=== PATIENT | male | born 1955 | race Caucasian/White ===

== ENCOUNTER 2020-12-29 20:40 | Observation (INO) | payer OTHER ==
[~2020-12-29] VITALS: Ht 177.8 cm; Wt 104.3 kg
[~2020-12-29 20:40] MED LIST: NAPR500 PO; OXYACE5T PO
[2020-12-29 21:09] LABS: BASOPHILS ABSOLUTE AUTO 0.02 K/mm3 (0.00-0.23); BASOPHILS PERCENT AUTO 0 % (0-2); EOSINOPHILS ABSOLUTE AUTO 0.11 K/mm3 (0.00-0.68); EOSINOPHILS PERCENT AUTO 2 % (0-6); Hematocrit 30.7 % (37.0-53.0); Hemoglobin 10.8 g/dL (13.5-17.5); IMMATURE GRAN ABSOLUTE AUTO 0.04 K/mm3 (0.00-0.10); IMMATURE GRAN PERCENT AUTO 1 % (0-1); LYMPHOCYTES ABSOLUTE AUTO 1.92 K/mm3 (0.84-5.20); LYMPHOCYTES PERCENT AUTO 29 % (21-46); MONOCYTES ABSOLUTE AUTO 0.58 K/mm3 (0.16-1.47); MONOCYTES PERCENT AUTO 9 % (4-13); Mean Corpuscular HGB 36.6 pg (26.0-34.0); Mean Corpuscular HGB Conc 35.2 g/dL (31.5-36.5); Mean Corpuscular Volume 104 fL (80-100); NEUTROPHILS ABSOLUTE AUTO 4.06 K/mm3 (1.96-9.15); NEUTROPHILS PERCENT AUTO 60 % (41-73); Platelet Count 110 K/mm3 (150-400); RDW Coefficient Variation 13.7 % (11.7-14.2); RDW Standard Deviation 52.2 fL (35.1-46.3); Red Blood Cell Count 2.95 M/mm3 (4.30-5.90); White Blood Cell Count 6.73 K/mm3 (4.00-11.30)
[2020-12-29 21:31] LABS: Alanine Aminotransfer (ALT/SGP 36 U/L (12-78); Albumin, Blood 2.7 g/dL (3.4-5.0); Albumin/Globulin Ratio 0.6 (0.8-1.8); Alk Phos 154 U/L (50-136); Anion Gap 13 mmol/L (6-16); Aspartate Aminotrans (AST/SGOT 69 U/L (12-37); Bilirubin, Total 2.3 mg/dL (0.1-1.0); Blood Urea Nitrogen 10 mg/dL (8-24); Bun/Creatinine Ratio 10.6 (12.0-20.0); CO2, Blood 19 mmol/L (21-32); Calcium, Blood 8.7 mg/dL (8.5-10.1); Chloride, Blood 99 mmol/L (98-108); Creatinine, Blood 0.94 mg/dL (0.60-1.20); Globulin, Blood 4.8 g/dL (2.2-4.0); Glomerular Filtration Rate >60 (60-); Glucose, Blood 120 mg/dL (70-99); Potassium, Blood 3.1 mmol/L (3.5-5.5); Sodium, Blood 131 mmol/L (136-145); Total Protein, Blood 7.5 g/dL (6.4-8.2)
[2020-12-29] MEDS ORDERED: [UNRECOGNIZED DRUG - OTHER] PO (22:30)
[2020-12-29] MEDS ORDERED: ASPI81CH PO (22:31)
[2020-12-29] MEDS ORDERED: HIGH BLOOD PRESSURE PO (22:31)
[2020-12-29 22:32] LABS: Ethanol (Alcohol), Blood, Med 82 mg/dL; Magnesium, Blood 1.6 mg/dL (1.6-2.4)
[2020-12-29] MEDS ORDERED: VITAMIN D (22:32)
[2020-12-29 23:04] LABS: International Normalized Ratio 1.28; Prothrombin Time Results 13.6 Sec (9.7-11.5)
[2020-12-30 01:17] LABS: Source, Urine Clean Catch
[2020-12-30 01:21] LABS: Appearance, Urine Clear (Clear); Bilirubin, Urine Neg (Neg); Blood, Urine Neg (Neg); Color, Urine Amber (P-Yellow); Glucose Qualitative, Urine Neg (Neg); Ketones, Urine 2+ (Neg); Leukocyte Esterase, Urine Neg (Neg); Nitrite, Urine Neg (Neg); Protein, Urine 1+ (Neg); Urobilinogen, Urine NORM (Normal)
--- NOTE | 2020-12-30 03:50 | NUR ---
PT ARRIVED TO FLOOR AT APPROX 0229 FROM ED. PT TRANSFERED FROM [facility] TO BED WITH NO PROBLEM. PT STATED THAT HIS VISION WAS DARKER THAN USUAL AND ALSO STATED THAT HE WAS UNABLE TO TO SEE COLORS DURING ASSESSMENT BUT THEN STATED THAT THIS VISION PROBLEM HAD BEEN GOING ON FOR A COUPLE OF MONTHS. PT HAD BLOOD SPLASHED ON SOCKS BUT REFUSED TO HAVE CLEAN ONES. PT DENIES CHEST PAIN OR SOB. WHILE PT WENT TO BATHROOM HE WAS ASKED NOT TO FLUSH THE TOILET. PT HAD A BOWEL MOMENT AND THIS NURSE WITNESSED BRIGHT RED AND SOME BLACK STOOL. NO WITNESSED EMISIS AT THIS TIME. PT INFUSING MEDICATIONS PER EMAR. CALL LIGHT IS WITHIN REACH. WILL CONTINUE TO MONITOR.
[2020-12-30 04:18] LABS: BASOPHILS ABSOLUTE AUTO 0.02 K/mm3 (0.00-0.23); BASOPHILS PERCENT AUTO 0 % (0-2); EOSINOPHILS PERCENT AUTO 0 % (0-6); Hematocrit 28.7 % (37.0-53.0); IMMATURE GRAN ABSOLUTE AUTO 0.07 K/mm3 (0.00-0.10); IMMATURE GRAN PERCENT AUTO 1 % (0-1); LYMPHOCYTES ABSOLUTE AUTO 1.01 K/mm3 (0.84-5.20); LYMPHOCYTES PERCENT AUTO 15 % (21-46); MONOCYTES PERCENT AUTO 7 % (4-13); Mean Corpuscular HGB 36.4 pg (26.0-34.0); Mean Corpuscular HGB Conc 34.8 g/dL (31.5-36.5); Mean Corpuscular Volume 104 fL (80-100); Mean Platelet Volume 9.8 fL (9.1-12.4); NEUTROPHILS ABSOLUTE AUTO 5.24 K/mm3 (1.96-9.15); NEUTROPHILS PERCENT AUTO 77 % (41-73); Platelet Count 103 K/mm3 (150-400); RDW Coefficient Variation 13.7 % (11.7-14.2); RDW Standard Deviation 52.7 fL (35.1-46.3); Red Blood Cell Count 2.75 M/mm3 (4.30-5.90); White Blood Cell Count 6.84 K/mm3 (4.00-11.30)
[2020-12-30 04:32] LABS: Alanine Aminotransfer (ALT/SGP 34 U/L (12-78); Albumin, Blood 2.8 g/dL (3.4-5.0); Albumin/Globulin Ratio 0.6 (0.8-1.8); Alk Phos 139 U/L (50-136); Anion Gap 9 mmol/L (6-16); Aspartate Aminotrans (AST/SGOT 64 U/L (12-37); Bilirubin, Total 2.6 mg/dL (0.1-1.0); Blood Urea Nitrogen 14 mg/dL (8-24); Bun/Creatinine Ratio 16.1 (12.0-20.0); CO2, Blood 22 mmol/L (21-32); Calcium, Blood 8.5 mg/dL (8.5-10.1); Chloride, Blood 101 mmol/L (98-108); Creatinine, Blood 0.87 mg/dL (0.60-1.20); Globulin, Blood 4.5 g/dL (2.2-4.0); Glomerular Filtration Rate >60 (60-); Glucose, Blood 121 mg/dL (70-99); Potassium, Blood 4.3 mmol/L (3.5-5.5); Sodium, Blood 132 mmol/L (136-145); Total Protein, Blood 7.3 g/dL (6.4-8.2)
--- NOTE | 2020-12-30 06:05 | NUR ---
SHIFT SUMMARY PT IS ALERT AND ORIENTED. PT IS PLEASANT BUT ANXIOUS ABOUT SITUATION. VITALS ARE STABLE AND ON ROOM AIR. DENIES CHEST PAIN AND SOB. PT STS THE HE HAS ABDOMINAL PAIN ONLY WITH P[RESSURE. BOWEL SOUND ARE HYPERACTIVE. HAS HAD TWO WITNESSED LOOSE BRB BM'S WHILE ON UNIT. STS THAT HE HAD SEVERAL EPISODES OF VOMITING WITH BRB EMISIS, THIS NURSE HAS NOT WITNESSED EMISIS/VOMITING. PT IS AMBULATING TO BATHROOM. CALL LIGHT IS WITHIN REACH.
[2020-12-30 10:00] LABS: Hematocrit 26.2 % (37.0-53.0); Hemoglobin 9.2 g/dL (13.5-17.5)
[2020-12-30 12:44] LABS: SARS-Cov-2 (COVID-19) PCR, MMC NEGATIVE (NEGATIVE)
--- NOTE | 2020-12-30 13:45 | NUR ---
UPDATE PT TO BE TRANSFERRED TO [facility] FOR GI CONSULT. [facility] TRANSFER PACKET COMPLETE. REPORT CALLED TO MARCUS KAUR AT [facility]. TRANSPORT IN THE ROOM TO TAKE PT BY [facility]. PT'S FAMILY MEMBER NOTIFIED OF TRANSFER REQUESTED. PT TAKEN OUT WITH TWO IV PUMPS.
== END 2020-12-30 13:45 | disposition short-term general hospital (02) ==
LOC: ER 20:40 → PCU 20:41 → ER 12-30 01:45 → PCU 12-30 01:45
PROVIDERS: Emergency Medicine; Family Medicine; Physician Assistant; ADMIT Internal Medicine
DX: K70.31 Alcoholic cirrhosis of liver with ascites (principal); I85.11 Secondary esophageal varices with bleeding; K76.6 Portal hypertension; F10.288 Alcohol dependence with other alcohol-induced disorder; E87.6 Hypokalemia; E03.9 Hypothyroidism, unspecified; I10 Essential (primary) hypertension; Z79.82 Long term (current) use of aspirin; Z20.822 Contact with and (suspected) exposure to COVID-19
CPT/HCPCS: 36415; 74177; 80053; 82105; 83690; 83735; 85014; 85018; 85025; 85610; 85730; 86850; 86900; 86901; 93005; 93010; 96365; 96366; 96367; 96375; 96376; 99285-25; A9270; C9113; G0378; G0480; J0696; J2354; J2405; J3411; J3475; J3480; J7042; J7050; J7120; Q9967; U0004

== ENCOUNTER 2021-01-08 15:42 | Inpatient (IN) | payer OTHER ==
[~2021-01-08] VITALS: Ht 177.8 cm; Wt 125.0 kg
[~2021-01-08 15:42] MED LIST changes: +ASPI81CH PO; +HIGH BLOOD PRESSURE PO; +VITAMIN D; +[UNRECOGNIZED DRUG - OTHER] PO
[2021-01-08 16:04] LABS: BASOPHILS ABSOLUTE AUTO 0.04 K/mm3 (0.00-0.23); BASOPHILS PERCENT AUTO 0 % (0-2); EOSINOPHILS ABSOLUTE AUTO 0.02 K/mm3 (0.00-0.68); EOSINOPHILS PERCENT AUTO 0 % (0-6); IMMATURE GRAN ABSOLUTE AUTO 0.13 K/mm3 (0.00-0.10); IMMATURE GRAN PERCENT AUTO 1 % (0-1); LYMPHOCYTES ABSOLUTE AUTO 2.53 K/mm3 (0.84-5.20); LYMPHOCYTES PERCENT AUTO 19 % (21-46); MONOCYTES ABSOLUTE AUTO 1.27 K/mm3 (0.16-1.47); MONOCYTES PERCENT AUTO 10 % (4-13); Mean Corpuscular HGB Conc 32.2 g/dL (31.5-36.5); Mean Corpuscular Volume 109 fL (80-100); Mean Platelet Volume 10.1 fL (9.1-12.4); NEUTROPHILS ABSOLUTE AUTO 9.28 K/mm3 (1.96-9.15); NEUTROPHILS PERCENT AUTO 70 % (41-73); Platelet Count 283 K/mm3 (150-400); RDW Coefficient Variation 18.2 % (11.7-14.2); RDW Standard Deviation 70.9 fL (35.1-46.3); White Blood Cell Count 13.27 K/mm3 (4.00-11.30)
[2021-01-08 16:22] LABS: Alanine Aminotransfer (ALT/SGP 27 U/L (12-78); Albumin, Blood 2.1 g/dL (3.4-5.0); Albumin/Globulin Ratio 0.7 (0.8-1.8); Alk Phos 101 U/L (50-136); Anion Gap 9 mmol/L (6-16); Aspartate Aminotrans (AST/SGOT 38 U/L (12-37); Bilirubin, Total 1.7 mg/dL (0.1-1.0); Blood Urea Nitrogen 28 mg/dL (8-24); Bun/Creatinine Ratio 25.7 (12.0-20.0); CO2, Blood 22 mmol/L (21-32); Chloride, Blood 106 mmol/L (98-108); Creatinine, Blood 1.09 mg/dL (0.60-1.20); Globulin, Blood 3.1 g/dL (2.2-4.0); Glomerular Filtration Rate >60 (60-); Glucose, Blood 142 mg/dL (70-99); Potassium, Blood 3.6 mmol/L (3.5-5.5); Sodium, Blood 137 mmol/L (136-145); Total Protein, Blood 5.2 g/dL (6.4-8.2)
[2021-01-08 16:32] LABS: Albumin, Blood 2.1 g/dL (3.4-5.0); Albumin/Globulin Ratio 0.6 (0.8-1.8); Bilirubin, Direct 0.9 mg/dL (0.0-0.3); Bilirubin, Indirect 0.9 mg/dL (0.1-0.7); Bilirubin, Total 1.8 mg/dL (0.1-1.0); Globulin, Blood 3.3 g/dL (2.2-4.0); Total Protein, Blood 5.4 g/dL (6.4-8.2)
[2021-01-08 17:17] LABS: Hematocrit 17.4 % (37.0-53.0); Hemoglobin 5.6 g/dL (13.5-17.5)
[2021-01-08 18:42] LABS: Source, Urine Catheter
--- NOTE | 2021-01-08 19:10 | NUR ---
PT ADMITTED TO ICU FROM ER ON [facility]. AWAKE, ALERT, COOPERATIVE, ABLE TO ANSWER QUESTIONS. SINUS TACH, BP STABLE. PROTONIX GTT INFUSING, 2 PIV INTACT. PLANS FOR BLOOD TRANSFUSION. ABLE TO STAND TO TRANSFER TO BED, SOME SOB WITH MOVEMENT AND DIZZINESS, RESOLVED WITH REST. REPORT TO YVONNE KAUR.
[2021-01-08 19:14] LABS: Bilirubin, Urine Neg (Neg); Blood, Urine Neg (Neg); Glucose Qualitative, Urine Neg (Neg); Ketones, Urine Neg (Neg); Leukocyte Esterase, Urine 1+ (Neg); Nitrite, Urine Neg (Neg); Protein, Urine Neg (Neg); Specific Gravity, Urine 1.015 (1.003-1.022); Urobilinogen, Urine NORM (Normal)
[2021-01-08 19:26] LABS: Appearance, Urine Clear (Clear); Color, Urine Yellow (P-Yellow)
[2021-01-08 19:27] LABS: Bacteria Not Seen /hpf; Red Blood Cells, Urine Not Seen /hpf (0-2); Squamous Epithelial Cells Not Seen /hpf (Few); White Blood Cells, Urine Rare /hpf (0-5)
--- NOTE | 2021-01-08 19:30 | NUR ---
ASSUMED CARE AT 1900 PT IS ALERT/ORINTED X4 AND ABLE TO MAKE HIS NEEDS KNOWN. DR YEN AT BEDSIDE REGARDING SCOPE FOR HE AM. SPO2 >95% ON RA. AFEBRILE. HR 120 SINUS. SBP 100-120; MAP >65. SOME NAUSEA NOTED, SCHEDULED REGLAN GIVEN AND HELPFUL; BED SIDE COMMODE USED AND 50ML OF BLACK/RED LIQUID STOOL. PT DIZZY WHEN STANDING UP BUT SUBSIDED OVER SEVERAL MINUTES. SEE SHIFT ASSESSMENT FOR FULL ASSESSMENT.
[2021-01-09 01:03] LABS: Mean Corpuscular HGB 32.5 pg (26.0-34.0); Mean Corpuscular HGB Conc 30.5 g/dL (31.5-36.5); Mean Corpuscular Volume 107 fL (80-100); Mean Platelet Volume 10.7 fL (9.1-12.4); NRBC ABSOLUTE 0.06 K/mm3 (0.00-0.02); NRBC Auto 0.2 /100 WBC (0.0-0.2); Platelet Count 215 K/mm3 (150-400); RDW Coefficient Variation 22.8 % (11.7-14.2); RDW Standard Deviation 83.7 fL (35.1-46.3); Red Blood Cell Count 1.23 M/mm3 (4.30-5.90)
[2021-01-09 01:17] LABS: Hematocrit 13.1 % (37.0-53.0)
[2021-01-09 01:45] LABS: Albumin, Blood 1.3 g/dL (3.4-5.0); Albumin/Globulin Ratio 0.7 (0.8-1.8); Bun/Creatinine Ratio 19.6 (12.0-20.0); Calcium, Blood 6.7 mg/dL (8.5-10.1); Creatinine, Blood 1.63 mg/dL (0.60-1.20); Globulin, Blood 1.9 g/dL (2.2-4.0); Potassium, Blood 4.2 mmol/L (3.5-5.5)
[2021-01-09 01:46] LABS: Total Protein, Blood 3.2 g/dL (6.4-8.2)
[2021-01-09 02:06] LABS: BAND PERCENT MAN 9 % (0-8); BASOPHILS PERCENT MAN 0 % (0-2); EOSINOPHILS PERCENT MAN 0 % (0-6); LYMPHOCYTES ABSOLUTE MAN 4.23 K/mm3 (0.84-5.20); LYMPHOCYTES PERCENT MAN 13 % (21-46); MONOCYTES ABSOLUTE MAN 1.95 K/mm3 (0.16-1.47); MONOCYTES PERCENT MAN 6 % (4-13); MYELOCYTE ABSOLUTE MAN 0.32 K/mm3 (0.00-0.00); MYELOCYTE PERCENT MAN 1 % (0-0); NEUTROPHILS ABSOLUTE MAN 26.08 K/mm3 (1.96-9.15); SEG NEUTROPHILS PERCENT MAN 71 % (41-73); TOTAL CELLS COUNTED 100
[2021-01-09 02:43] LABS: International Normalized Ratio 2.34; Prothrombin Time Results 24.1 Sec (9.7-11.5)
--- NOTE | 2021-01-09 04:11 | NUR ---
01/09/21 0411 Rah Sotelo CASE DONE IN ICU HIMS CODER YVONNE MANAGING MEDICATION PATINET ON PROPOFOL GTT AND ADDITIONAL RS ORDERED BY HIMS CODER YVONNE. ANDDITIONAL RN IN AND OUT OF ROOM NEEDED HENRY. History, Chart, Medications and Allergies reviewed before start of procedure. Patient confirms NPO status and agrees with scheduled surgery. 3-LEAD EKG REVIEWED WITH PHYSICIAN PRIOR TO START OF PROCEDURE. MONITOR INTACT WITH CONTINUOUS PULSE OXIMETRY AND INTERMITTENT BP. PATIENT DETERMINED TO BE ASA APPROPRIATE FOR PROPOFOL AND ON PROPOFOL GTT MONITORED BY HIMS CODER STATED ABOVE.
--- NOTE | 2021-01-09 05:00 | NUR ---
BLOOD ADMINISTRATION DR YEN INSTRUCTED THAT ONLY 2 FFP NEEDED TO INFUSE OTHER THAN THE 4 ORDERED. THE OTHER TWO UNITS SENT BACK TO LAB.
[2021-01-09 05:50] LABS: Base Excess Venous -22.7 mmol/L; Bicarbonate Venous 8.9 mmol/L (24.0-30.0); PCO2 Venous 24.2 mmHg (38-42); PO2 Venous 66.9 mmHg (38-42); pH Blood Venous 7.09 (7.34-7.37)
[2021-01-09 05:56] LABS: Hematocrit 25.6 % (37.0-53.0); Hemoglobin 8.5 g/dL (13.5-17.5); Mean Corpuscular HGB 32.1 pg (26.0-34.0); Mean Corpuscular HGB Conc 33.2 g/dL (31.5-36.5); Mean Platelet Volume 10.2 fL (9.1-12.4); NRBC ABSOLUTE 0.15 K/mm3 (0.00-0.02); NRBC Auto 0.4 /100 WBC (0.0-0.2); Platelet Count 273 K/mm3 (150-400); RDW Coefficient Variation 18.2 % (11.7-14.2); RDW Standard Deviation 60.4 fL (35.1-46.3); Red Blood Cell Count 2.65 M/mm3 (4.30-5.90); White Blood Cell Count 40.85 K/mm3 (4.00-11.30)
[2021-01-09 06:00] LABS: Mean Corpuscular Volume 97 fL (80-100)
[2021-01-09 06:16] LABS: BAND PERCENT MAN 29 % (0-8); BASOPHILS PERCENT MAN 0 % (0-2); EOSINOPHILS PERCENT MAN 1 % (0-6); LYMPHOCYTES ABSOLUTE MAN 1.22 K/mm3 (0.84-5.20); LYMPHOCYTES PERCENT MAN 3 % (21-46); METAMYELOCYTE ABSOLUTE MAN 0.81 K/mm3 (0.00-0.00); METAMYELOCYTE PERCENT MAN 2 % (0-0); MONOCYTES ABSOLUTE MAN 2.85 K/mm3 (0.16-1.47); MONOCYTES PERCENT MAN 7 % (4-13); MYELOCYTE PERCENT MAN 1 % (0-0); NEUTROPHILS ABSOLUTE MAN 35.13 K/mm3 (1.96-9.15); SEG NEUTROPHILS PERCENT MAN 57 % (41-73); TOTAL CELLS COUNTED 100
[2021-01-09 06:29] LABS: Albumin, Blood 1.9 g/dL (3.4-5.0); Albumin/Globulin Ratio 0.8 (0.8-1.8); Bilirubin, Total 4.7 mg/dL (0.1-1.0); Creatinine, Blood 2.13 mg/dL (0.60-1.20); Globulin, Blood 2.3 g/dL (2.2-4.0); Potassium, Blood 5.1 mmol/L (3.5-5.5); Total Protein, Blood 4.2 g/dL (6.4-8.2)
--- NOTE | 2021-01-09 06:52 | NUR ---
BLOOD TRANSFUSION FIRST UNIT OF PRBC STARTED AT 2022. AT 2037 PT BECAME DIAPHORETIC, ONLY SPEAKING IN ONE WORD ANSWERS, HR 140'S, SBP 80-90'S, PALE, AND C/O DYSPNEA WITH SPO2 >95% ON RA. BLOOD TRANSFUSION STOPPED, DR CERVANTES NOTFIED AND CAME TO ASSESS PT. PT VITALS MORE STABLE DURING HIS ASSESSMENT. HE INSTRUCTD TO START SECOND UNIT OF PRBC.
--- NOTE | 2021-01-09 07:24 | NUR ---
RHYTHM CHANGE AT 2300 PT RHYTHM WENT FROM SINUS TACH 120-130 TO SVT 170-180'S, PT SYMPTOMATIC C/O DYSPNEA AND MILD CHEST PAIN. DR CERVANTES NOTIFIED AND ORDERED ADENOZINE, STAT MAGNISIUM LAB, AND 40MEQ IV KCL. ONE DOSE OF ADENOZINE GIVEN AND PT TOLERATED WELL, RATE CHANGED BACK TO SINUS TACH 120'S, SYMPTOMS RESOLVED.
--- NOTE | 2021-01-09 07:29 | NUR ---
CENTRAL LINE PREVIOUS PERIFERAL LINES NOT FLUSHING OR PULLED OUT. MANY ATTEMPTS TO START OTHER PERIFERALS AND NOT SUCCESSFUL. CHARGE NURSE IN TO ATTEMPT POWERGLIDE AND NOT SUCCESSFUL. DR GARDNER NOTIFIED FOR CENTRAL LINE PLACEMENT. 8.5F CENTRAL LINE PLACED TO RT IJ AT 0000.
--- NOTE | 2021-01-09 07:32 | NUR ---
CODE BLUE 10 MINUTES AFTER CENTRAL LINE PLACEMENT PT BEGAN ACTING STRANGE, INCREASE IN ANXIOUSNESS, NOT REDIRECTABLE, AND A CHANGE IN BREATHING PATTERN TO A GASPING BREATH. DR TRIANAZ TO BEDSIDE, RT TO BEDSIDE, AND INTUBATION INITIATED. WHEN CHECKING BREATH SOUNDS, PULSE NO LONGER HEARD, UNABLE TO PALPATE PULSES. CPR INITIATED AT 0019. SEE CODE BLUE SHEET FOR DETAILS DURING CODE. ROSC OCCURED AT 0035. LEVOPHED, VASOPRESSON, PROTONIX, AND OCTRIOTIDE INFUSING. VENT SETTINGS AC 16, TV 500, PEEP 5, FIO2 100%. BAUGH PLACED, OG PLACED AND PUT TO INTERMIT. SUCTION; >200ML BRIGHT RED BLOOD OUTPUT NOTED IMMEDIATLY. DR GARCIA CONSULTED AND CAME TO BEDSIDE. NEW ORDERS PROVIDED TO INFUSE 4 UNITS OF PRBC, 4 UNITS OF FFP, AND 1 UNIT OF PLATLETS. PRBC INFUSED WITH MASS TRANSFUSION MACHINE. DR YEN NOTIFIED OF EVENTS AND PLANS ON SCOPING AT 0400. FAMILY NOTIFIED AND PT SISTER TO COME TO FACILITY TONIGHT. 0150 PT MORE ALERT, FOLLOWING DIRECTIONS, HAVING PURPOSFUL MOVEMENT, AND ANSWERING YES/NO QUESTIONS. NEW ORDERS FOR PROPOFOL STARTED, SEE FLOWSHEET FOR TITRATION.
--- NOTE | 2021-01-09 07:47 | NUR ---
SCOPE DR YEN AND TEAM IN AT 0400 FOR SCOPE. 4 BANDS PLACED. HYPOTENSION NOTED, DR GARCIA INSTRUCTED TO INCREASED LEVOPHED TO 35MCG/MIN. SEE DR YEN NOTES FOR MORE INFORMATION.
--- NOTE | 2021-01-09 07:52 | NUR ---
END OF SHIFT SUMMARY PT INTUBATED WITH VENT SETTINGS AC 16, TV 500, PEEP 10, FIO2 70%; SMALL AMOUNT OF RED SECREATIONS SUCTIONED FROM ETT; RR 30-40. PT REACTIVE TO PAINFUL STIMULI; PROPOFOL INFUSING AT 30MCG/KG/MIN. COOLING BLANKET IN PLACE PER DR GARCIA REQUEST TO KEEP TEMP AT OR LESS THAN 37.5 CELCIUS. HR 100-120 SINUS; SBP 50-90'S; MAP <65; LEVOPHED INFUSING AT 35MCG/MIN; VASOPRESSIN INFUSING AT 0.04UNITS/MIN. DR GARCIA AWEAR OF HYPOTENSION. OG TO LIS; BRIGHT RED BLOOD OUTPUT NOTED; SANDOSTAIN AND PROTONIX INFUSING. BAUGH IN PLACE WITH NO URINE OUTPUT SO FAR. CENTRAL LINE TO RT IJ PATENT WITH DRESSING C/D/I. DR GARCIA NOTIFIED OF CRITICAL CO2 AND LOW IONIZED CA, NEW ORDERS PROVIDED. REPORT GIVEN TO KADE KAUR.
[2021-01-09 09:22] LABS: Base Excess Venous -22.5 mmol/L; Bicarbonate Venous 8.8 mmol/L (24.0-30.0); PCO2 Venous 28.5 mmHg (38-42); PO2 Venous 40.4 mmHg (38-42); pH Blood Venous 7.05 (7.34-7.37)
[2021-01-09 09:32] LABS: Hemoglobin 8.9 g/dL (13.5-17.5); Mean Corpuscular HGB 32.5 pg (26.0-34.0); Mean Corpuscular Volume 99 fL (80-100); Mean Platelet Volume 10.5 fL (9.1-12.4); NRBC ABSOLUTE 0.22 K/mm3 (0.00-0.02); NRBC Auto 0.5 /100 WBC (0.0-0.2); Platelet Count 305 K/mm3 (150-400); RDW Coefficient Variation 19.4 % (11.7-14.2); RDW Standard Deviation 62.6 fL (35.1-46.3); Red Blood Cell Count 2.74 M/mm3 (4.30-5.90); White Blood Cell Count 44.85 K/mm3 (4.00-11.30)
[2021-01-09 11:07] LABS: BAND PERCENT MAN 29 % (0-8); BASOPHILS PERCENT MAN 0 % (0-2); EOSINOPHILS PERCENT MAN 0 % (0-6); LYMPHOCYTES ABSOLUTE MAN 2.69 K/mm3 (0.84-5.20); LYMPHOCYTES PERCENT MAN 6 % (21-46); METAMYELOCYTE ABSOLUTE MAN 0.89 K/mm3 (0.00-0.00); METAMYELOCYTE PERCENT MAN 2 % (0-0); MONOCYTES ABSOLUTE MAN 4.03 K/mm3 (0.16-1.47); MONOCYTES PERCENT MAN 9 % (4-13); MYELOCYTE ABSOLUTE MAN 0.44 K/mm3 (0.00-0.00); MYELOCYTE PERCENT MAN 1 % (0-0); NEUTROPHILS ABSOLUTE MAN 36.77 K/mm3 (1.96-9.15); SEG NEUTROPHILS PERCENT MAN 53 % (41-73); TOTAL CELLS COUNTED 100
[2021-01-09 13:05] LABS: Base Excess Venous -22.5 mmol/L; Bicarbonate Venous 8.9 mmol/L (24.0-30.0); PCO2 Venous 26.7 mmHg (38-42); PO2 Venous 51.1 mmHg (38-42)
[2021-01-09 13:06] LABS: pH Blood Venous 7.07 (7.34-7.37)
[2021-01-09 13:31] LABS: Hematocrit 25.4 % (37.0-53.0); Hemoglobin 8.3 g/dL (13.5-17.5)
[2021-01-09 14:07] LABS: Magnesium, Blood 2.1 mg/dL (1.6-2.4)
[2021-01-09 14:10] LABS: Albumin, Blood 1.8 g/dL (3.4-5.0); Albumin/Globulin Ratio 0.8 (0.8-1.8); Bilirubin, Total 5.3 mg/dL (0.1-1.0); Bun/Creatinine Ratio 13.7 (12.0-20.0); Calcium, Blood 7.7 mg/dL (8.5-10.1); Creatinine, Blood 2.7 mg/dL (0.60-1.20); Globulin, Blood 2.2 g/dL (2.2-4.0)
--- NOTE | 2021-01-09 17:15 | NUR ---
SHIFT SUMMARY PT REMAINED SEDATED AND INTUBATED TODAY. HIS BP WAS VERY LOW THIS MORNING DESPITE HIGHDOSE LEVOPHED, BUT AROUND NOON HIS BP IMPROVED AND HAS HELD A SYSTOLIC IN THE LOW 100S AND MAP ABOVE 60. HE REMAINS ON 36MCG/MIN OF LEVOPHED AND VASOPRESSIN GTT. HE IS SR. HR STARTED TODAY IN THE LOW 100S AND NOW IS IN THE 80S. LUNGS ARE COARSE. FLAIL CHEST ON L SIDE. ABDOMEN IS DISTENDED AND TIGHT. THIS EVENING OG TUBE NOTICED TO BE COILED INSIDE PT'S MOUTH. UNCOILED THE TUBE AND CHECKED PLACEMENT WITH AIR BOLUS, BUT IT WAS NOT IN THE STOMACH. OG PULLED BACK MORE AND WAS FOUND TO BE COILED EVEN MORE IN THE BACK OF THE MOUTH SO OG REMOVED. PAGE OUT TO DR. YEN AND DR. GARCIA INFORMED WELL. PT ONLY HAD 15ML OF URINE OUT THIS SHIFT, DR. GARCIA INFORMED. PT'S SISTER HAS BEEN AT THE BEDSIDE TODAY. SHE HAS BEEN FULLY UPDATED BYTobi LANGSTON AND NURSING STAFF. CONTINUING TO MONITOR.
[2021-01-09 17:45] LABS: Base Excess Venous -19.2 mmol/L; Bicarbonate Venous 10.9 mmol/L (24.0-30.0); PCO2 Venous 24.4 mmHg (38-42); PO2 Venous 50.2 mmHg (38-42)
[2021-01-09 17:47] LABS: pH Blood Venous 7.18 (7.34-7.37)
[2021-01-09 17:57] LABS: Hematocrit 22.8 % (37.0-53.0); Hemoglobin 7.6 g/dL (13.5-17.5); Mean Corpuscular HGB 32.3 pg (26.0-34.0); Mean Corpuscular HGB Conc 33.3 g/dL (31.5-36.5); Mean Corpuscular Volume 97 fL (80-100); Mean Platelet Volume 10.6 fL (9.1-12.4); NRBC ABSOLUTE 0.16 K/mm3 (0.00-0.02); NRBC Auto 0.4 /100 WBC (0.0-0.2); Platelet Count 271 K/mm3 (150-400); RDW Coefficient Variation 20.6 % (11.7-14.2); RDW Standard Deviation 65.6 fL (35.1-46.3); Red Blood Cell Count 2.35 M/mm3 (4.30-5.90); White Blood Cell Count 37.15 K/mm3 (4.00-11.30)
--- NOTE | 2021-01-09 18:06 | NUR ---
SP0KE WITH DR. YEN ABOUT OG TUBE AND HE OK'D FOR IT NOT TO BE REPLACED. HE ALSO ORDERED SOME FFP TO BE GIVEN TOMORROW AN HOUR BEFORE PARACENTESIS. LEFT A MESSAGE WITH [employer] BI[employer]IST TO SCHEDULE PROCEDURE FOR TOMORROW.
[2021-01-09 18:31] LABS: Albumin, Blood 1.7 g/dL (3.4-5.0); Albumin/Globulin Ratio 0.8 (0.8-1.8); BAND PERCENT MAN 27 % (0-8); BASOPHILS PERCENT MAN 0 % (0-2); Bilirubin, Total 5.9 mg/dL (0.1-1.0); Bun/Creatinine Ratio 12.3 (12.0-20.0); Calcium, Blood 7.5 mg/dL (8.5-10.1); EOSINOPHILS PERCENT MAN 0 % (0-6); Globulin, Blood 2.1 g/dL (2.2-4.0); LYMPHOCYTES ABSOLUTE MAN 4.08 K/mm3 (0.84-5.20); LYMPHOCYTES PERCENT MAN 11 % (21-46); METAMYELOCYTE ABSOLUTE MAN 0.74 K/mm3 (0.00-0.00); METAMYELOCYTE PERCENT MAN 2 % (0-0); MONOCYTES ABSOLUTE MAN 0.37 K/mm3 (0.16-1.47); MONOCYTES PERCENT MAN 1 % (4-13); MYELOCYTE ABSOLUTE MAN 0.37 K/mm3 (0.00-0.00); MYELOCYTE PERCENT MAN 1 % (0-0); NEUTROPHILS ABSOLUTE MAN 31.57 K/mm3 (1.96-9.15); SEG NEUTROPHILS PERCENT MAN 58 % (41-73); TOTAL CELLS COUNTED 100; Total Protein, Blood 3.8 g/dL (6.4-8.2)
--- NOTE | 2021-01-09 21:43 | NUR ---
ASSUMED CARE AT 1900 PT LAYING IN BED INTUBATED WITH VENT SETTINGS AC 16, TV 350, PEEP 10, FIO2 70%; SMALL AMOUNT OF CLEAR SECREATIONS SUCTIONED FROM ETT; LT FLAIL CHEST NOTED. PT MINIMALLY REACTIVE TO PAINFUL STIMULI; WEAK GAG AND COUGH NOTED; SLUGGISH PUPILS; PROPOFOL INFUSING AT 15MCG/KG/MIN. AFEBRILE. RR 40'S. HR 80'S. SBP 120'S; MAP >65; LEVOPHED INFUSING AT 32MCG/MIN; VASOPRESSIN INFUSING AT 0.04UNITS/MIN. SEVERE/FIRM ABDOMINAL DISTENTION NOTED; HYPOACTIVE BOWEL TONES; OCTREOTIDE AND PROTONIX INFUSING. BAUGH IN PLACE AND DRAINING MINIMAL URINE. CENTRAL LINE TO RT IJ IN PLACE AND PATENT. SODIUM BICARB INFUSING. ALBUMIN 2/2 INFUSING. SEE SHIFT ASSESSMENT FOR FULL ASSESSMENT.
[2021-01-09 22:14] LABS: Hematocrit 18.7 % (37.0-53.0); Hemoglobin 6.3 g/dL (13.5-17.5)
--- NOTE | 2021-01-09 23:43 | NUR ---
UPDATE DR GARCIA CALLED REGARDING H&H DRAWN AT 2155. Hgb 6.3. NEW ORDERS PROVIDED TO INFUSE 1 UNIT OF PRBC, RECHECK H&H 3HRS AFTER TRANSFUSION, AND HAVE AN ABG DRAWN IN THE AM.
[2021-01-10 05:26] LABS: PCO2 Arterial 27.8 mmHg (35-45); PO2 Arterial 55.9 mmHg (80-100); pH Blood Arterial 7.38 (7.35-7.45)
[2021-01-10 06:11] LABS: Hematocrit 19.2 % (37.0-53.0); Hemoglobin 6.7 g/dL (13.5-17.5)
--- NOTE | 2021-01-10 06:39 | NUR ---
END OF SHIFT SUMMARY NO ACUTE EVENTS OVER NIGHT. PT CONT TO BE INTUBATED WITH VENT SETTINGS AC 18, TV 350, PEEP 10, FIO2 70%; RR 30-40'S; SCANT AMOUNT OF SECREATIONS. PT IS MINIMALLY REACTIVE TO PAINFUL STIMULI, PUPILS SLUGGISH, GAG AND COUGH WEAK; PROPFOL INFUSING AT 15MCG/KG/MIN. AFEBRILE. HR 80-90. SBP 110-140; LEVOPHED AND VASOPRESSIN INFUSING, SEE FLOWSHEET. ABD CONT TO BE SEVERE DISTENDED; PROTONIX AND OCTREOTIDE INFUSING. BAUGH PATENT AND DRAINING MINIMAL URINE; 125ML OF OUTPUT THIS SHIFT. HGB AT 0600 WAS 6.3, DR GARCIA ORDERED 1 UNIT OF PRBC TO BE INFUSED. WILL REPORT TO AM RN WHEN AVAILABLE.
--- NOTE | 2021-01-10 08:05 | NUR ---
INITIAL ASSESSMENT PATIENT INTUBATED AND SEDATED. PATIENT RESPONDS MINIMALLY TO NOXIOUS STIMULI BY WIGGLING HANDS AND FEET. PUPILS REACTIVE TO LIGHT. 3+ IN SIZE. NO EYE MOVEMENT NOTED. EYES JAUNDICED. SCLERAL EDEMA NOTED. NO SIGNS OF PAIN NOTED AT THIS TIME. PATIENT HAS CORE TEMP OF 99.9 DEGREES FAHRENHEIT. PATIENT ON VENT SETTINGS OF AC 16, TV 350, PEEP 10, 70% FIO2. LUNGS CLEAR TO AUSCULTATION AFTER SUCTIONING. SCANT AMOUNT OF THIN, BLOODY SECRETIONS SUCTIONED FROM ETT. SMALL AMOUNT OF BLOODY ORAL SECRETIONS SUCTIONED WELL WITH ORAL CARE. RR HIGH 20S TO HIGH 30S. PATIENT IN SR, HR IN THE 90S. SBP 120S TO 140S. LEVOPHED INFUSING AT 20 MCG/ MINUTE. SCDS IN PLACE. TIBIAL PULSES DOPPLER; ALL OTHERS FAINT IN STRENGTH. PITTING EDEMA NOTED TO THIGHS AND BLES. ABDOMEN DISTENDED, TIGHT, FIRM, WITH HYPOACTIVE BOWEL SOUNDS NOTED. LAST BM DOCUMENTED YESTERDAY. BAUGH IN PLACE DRAINING SMALL AMOUNTS OF MESERET COLORED URINE. SCATTERED BRUISES NOTED. BLES COOL, WITH SKIN DISCOLORATION. SANDOSTATIN INFUSING AT 25 MLS/ HOUR, PROPOFOL AT 15 MCG/ KG/ MINUTE, PROTONIX AT 10 MLS/ HOUR, SODIUM BICARB AT 150 MLS/ HOUR. BED LOW, CALL LIGHT IN REACH. WILL CONTINUE TO MONITOR PATIENT FREQUENTLY THROUGHOUT SHIFT.
--- NOTE | 2021-01-10 10:50 | NUR ---
DR. GARCIA INFORMED THAT PATIENT'S O2 REQUIREMENTS INCREASING. INFORMED THAT WENT FROM 70 TO 90% FIO2 TO KEEP SATS 90% AND GREATER. STATED HE WOULD COME SEE PATIENT SHORTLY.
--- NOTE | 2021-01-10 12:00 | NUR ---
DR. BRUMFIELD INFORMED THAT PATIENT RECEIVED 1 UNIT PRBCS AND 2 FFPS THIS AM. INFORMED THAT NO AM LABS COLLECTED THIS AM. ASKED IF WOULD LIKE REPEAT H AND H 1 HOUR AFTER BLOOD COMPLETE. INFORMED PATIENT HAD 125 MLS OF URINE OUT ON PARAKEET RAISER. INFORMED THAT BOTH ALT AND AST INCREASING. INFORMED THAT PATIENT HAD MEDIUM SIZED, DARK MAROON, CLOTTED STOOL AROUND 1000. NO ORDERS RECEIVED AT THIS TIME.
--- NOTE | 2021-01-10 13:00 | NUR ---
TEMP OF 99.3 DEGREES FAHRENHEIT. SEDATION ON SB. PATIENT UNRESPONSIVE. PATIENT NO LONGER RESPONDING TO NOXIOUS STIMULI. COUGH REFLEX NOTED. NO MOVEMENT OF EXTREMITIES. EYES REMAIN BRISK TO LIGHT. NO MOVEMENT OF EYES. FIO2 INCREASED FROM 70 TO 90% THIS AM TO KEEP SATS 90% AND GREATER. EXPIRATORY RHONCHI NOTED IN UPPER LUNG LOBES. LOWER LOBES CLEAR. CREPITUS NOTED ON L CHEST WALL. RR REMAINS 20S TO 30S. PATIENT SR TO ST, HR 80S TO LOW 100S. SBP 130S TO 150S. LEVOPHED DRIP AT 14 MCG/ MINUTE. PATIENT HAD MEDIUM SIZED, DARK MAROON, CLOTTY STOOL THIS AM. NO OTHER ACUTE CHANGES TO NOTE ON AT THIS TIME. WILL CONTINUE TO MONITOR.
[2021-01-10 14:36] LABS: Hematocrit 19.4 % (37.0-53.0); Hemoglobin 6.9 g/dL (13.5-17.5); Mean Corpuscular HGB 31.2 pg (26.0-34.0); Mean Corpuscular HGB Conc 35.6 g/dL (31.5-36.5); Mean Platelet Volume 10.8 fL (9.1-12.4); NRBC ABSOLUTE 0.11 K/mm3 (0.00-0.02); NRBC Auto 1.1 /100 WBC (0.0-0.2); Platelet Count 78 K/mm3 (150-400); Red Blood Cell Count 2.21 M/mm3 (4.30-5.90)
[2021-01-10 14:46] LABS: Mean Corpuscular Volume 88 fL (80-100)
[2021-01-10 15:00] LABS: Automated BF WBC Count 4.387 K/mm3 (0-999); Body Fluid WBC Count 4387 /mm3 (0-999)
[2021-01-10 15:09] LABS: BAND PERCENT MAN 26 % (0-8); BASOPHILS PERCENT MAN 0 % (0-2); EOSINOPHILS ABSOLUTE MAN 0.09 K/mm3 (0.00-0.68); EOSINOPHILS PERCENT MAN 1 % (0-6); LYMPHOCYTES % ATYPICAL MANUAL 2 % (0-0); LYMPHOCYTES ABSOLUTE MAN 1.18 K/mm3 (0.84-5.20); LYMPHOCYTES PERCENT MAN 10 % (21-46); METAMYELOCYTE ABSOLUTE MAN 0.09 K/mm3 (0.00-0.00); METAMYELOCYTE PERCENT MAN 1 % (0-0); MONOCYTES ABSOLUTE MAN 0.29 K/mm3 (0.16-1.47); MONOCYTES PERCENT MAN 3 % (4-13); NEUTROPHILS ABSOLUTE MAN 8.21 K/mm3 (1.96-9.15); SEG NEUTROPHILS PERCENT MAN 57 % (41-73); TOTAL CELLS COUNTED 100
[2021-01-10 15:10] LABS: Albumin, Blood 2.2 g/dL (3.4-5.0); Albumin/Globulin Ratio 1.2 (0.8-1.8); Bilirubin, Total 7.5 mg/dL (0.1-1.0); Bun/Creatinine Ratio 11.9 (12.0-20.0); Calcium, Blood 6.6 mg/dL (8.5-10.1); Creatinine, Blood 3.86 mg/dL (0.60-1.20); Globulin, Blood 1.9 g/dL (2.2-4.0); Phosphorus, Blood 4.9 mg/dL (2.5-4.9); Potassium, Blood 3.4 mmol/L (3.5-5.5); Total Protein, Blood 4.1 g/dL (6.4-8.2)
[2021-01-10 15:12] LABS: Albumin, Body Fluid 0.4 g/dL
[2021-01-10 15:43] LABS: RBC Count, Body Fluid 59 /mm3 (0-0)
--- NOTE | 2021-01-10 16:00 | NUR ---
DR. BRUMFIELD UPDATED ON HEMOGLOBIN OF 6.9, PLATELETS OF 78, LACTIC OF 8.9, POTASSIUM OF 3.4, BUN OF 46, CALCIUM OF 6.6. INFORMED THAT BILIRUBIN AND AST/ALT CONTINUE TO INCREASE. STATED HE WILL GO AND LOOK AT LAB RESULTS NOW.
--- NOTE | 2021-01-10 16:05 | NUR ---
PATIENT HAS TEMP OF 99.3 DEGREES FAHRENHEIT. HR IN THE 90S. SBP IN THE 130S. LEVOPHED REMAINS BEING TITRATED DOWN. PATIENT BEING GIVEN PRN FENTANYL TO HELP WITH INCREASED RR/ TOLERANCE OF VENT/ PAIN MANAGEMENT. NO OTHER ACUTE CHANGES TO NOTE ON AT THIS TIME. WILL CONTINUE TO MONITOR.
[2021-01-10 16:21] LABS: Appearance, Body Fluid Hazy (Clear); Color, Body Fluid L Yellow (None-Yellow); Total Cell Count, Body Fluid 100
[2021-01-10 18:01] LABS: Hematocrit 18.9 % (37.0-53.0); Hemoglobin 6.8 g/dL (13.5-17.5)
--- NOTE | 2021-01-10 18:23 | NUR ---
DR. BRUMFIELD INFORMED OF HEMOGLOBIN OF 6.8. NO ORDER RECEIVED AT THIS TIME.
--- NOTE | 2021-01-10 18:48 | NUR ---
SHIFT SUMMARY PATIENT REMAINED INTUBATED. PATIENT PLACED ON SEDATION VACATION THIS SHIFT. PATIENT REMAINED UNRESPONSIVE. PATIENT WAS NOTED TO HAVE SLIGHT MOVEMENT IN HANDS AND FEET WITH NOXIOUS STIMULI BUT HAS NOT HAD ANY MOVEMENT SINCE. COUGH REFLEX REMAINS INTACT. NO MOVEMENT TO EYES. EYES JAUNDICED WITH SCLERAL EDEMA. TMAX OF 100.0 DEGREES FAHRENHEIT THIS SHIFT. PRN FENTANYL GIVEN FOR SIGNS OF PAIN. PATIENT INCREASED FROM 70 TO 90% FIO2 ON VENT THIS SHIFT TO MAINTAIN O2 SATS OF 90% AND GREATER. SCANT AMOUNTS OF BLOODY SECRETIONS FROM ETT AND MOUTH THIS SHIFT. CREPITUS NOTED TO LEFT CHEST WALL. RR HIGHS 20 TO 40S. PATIENT SR TO ST, HR 80S TO LOW 100S. SBP 90S TO 160S. LEVOPHED DECREASED FROM 14 MCG/ MINUTE AT BEGINNING OF SHIFT TO 8 MCG/ MINUTE BY END OF SHIFT. PATIENT HAD 1 MEDIUM, DARK MAROON, CLOTTY BM THIS SHIFT. OG PLACED. BAUGH DRAINED 320 MLS OF MESERET COLORED URINE. 2 L OUT FROM US GUIDED PARACENTESIS TODAY. NO CHANGES TO SKIN NOTED. SANDOSTATIN REMAINS AT 25 MLS/ HOUR, PROPOFOL AT 15 MCG/ KG/ MINUTE, PROTONIX AT 10 MLS/ HOUR, VASOPRESSIN AT 0.04 UNITS/ MINUTE, BICARB AT 150 MLS/ HOUR. PATIENT RECEIVED 1 UNITS PRBC AND 2 UNITS FFP THIS SHIFT. PATIENT RECEIVED ALBUMIN X 3. PATIENT RECEIVED 40 MEQ KCL PT. SPUTUM CULTURE SENT TO LAB FOR CULTURE. ROCEPHIN CHANGED TO ZOSYN. LACTULOSE ORDERED TO START. PATIENT APPEARS COMFORTABLE AT THIS TIME. BED LOW, CALL LIGHT IN REACH. REPORT WILL BE GIVEN TO ASSUMING PEST CONTROLLER NURSE SHORTLY.
[2021-01-10 21:54] LABS: Hemoglobin 6.2 g/dL (13.5-17.5)
[2021-01-10 21:56] LABS: Hematocrit 17.7 % (37.0-53.0)
[2021-01-11 01:46] LABS: Hemoglobin 7.2 g/dL (13.5-17.5)
[2021-01-11 05:58] LABS: BASOPHILS ABSOLUTE AUTO 0.01 K/mm3 (0.00-0.23); BASOPHILS PERCENT AUTO 0 % (0-2); Hematocrit 19.8 % (37.0-53.0); LYMPHOCYTES ABSOLUTE AUTO 1.07 K/mm3 (0.84-5.20); LYMPHOCYTES PERCENT AUTO 14 % (21-46); MONOCYTES ABSOLUTE AUTO 0.61 K/mm3 (0.16-1.47); MONOCYTES PERCENT AUTO 8 % (4-13); Mean Corpuscular HGB 30.7 pg (26.0-34.0); Mean Corpuscular HGB Conc 35.4 g/dL (31.5-36.5); Mean Corpuscular Volume 87 fL (80-100); NRBC ABSOLUTE 0.06 K/mm3 (0.00-0.02); NRBC Auto 0.8 /100 WBC (0.0-0.2); Platelet Count 58 K/mm3 (150-400); RDW Standard Deviation 51.3 fL (35.1-46.3); Red Blood Cell Count 2.28 M/mm3 (4.30-5.90); White Blood Cell Count 7.51 K/mm3 (4.00-11.30)
[2021-01-11 06:02] LABS: EOSINOPHILS ABSOLUTE AUTO 0.04 K/mm3 (0.00-0.68); EOSINOPHILS PERCENT AUTO 1 % (0-6); IMMATURE GRAN ABSOLUTE AUTO 0.35 K/mm3 (0.00-0.10); IMMATURE GRAN PERCENT AUTO 5 % (0-1); NEUTROPHILS ABSOLUTE AUTO 5.43 K/mm3 (1.96-9.15); NEUTROPHILS PERCENT AUTO 72 % (41-73)
[2021-01-11 06:24] LABS: International Normalized Ratio 3.25; Prothrombin Time Results 32.8 Sec (9.7-11.5)
--- NOTE | 2021-01-11 06:30 | NUR ---
END OF SHIFT SUMMARY: PATIENT HAS RESTED COMFORTABLY ON VENT OVERNIGHT. PATIENT REMAINS UNRESPOSIVE BUT SEEMS LIKE HE IS STARTING TO MOVE LEGS AT TIMES. PATIENT DOES NOT OPEN EYES OR FOLLOW COMMANDS. O2 TITRATED TO 80% BUT NO OTHER VENT CHANGES HAVE BEEN MADE. MINOR TITRATION WITH PRESSERS. LEVO IS AT 10 AND VASO STILL INFUSING. 1 UNIT PRBC GIVEN FOR A 6.2 HGB AND CRITICAL HCT. RESPONDED WELL AND IS NOW >7. WILL CONTINUE TO MONITOR LABS AND VITAL SIGNS. FAMILY UPDATED OVERNIGHT AND WILL BE BACK THIS MORNING TO SPEAK WITH DR. BRUMFIELD
[2021-01-11 06:40] LABS: Albumin, Blood 2.7 g/dL (3.4-5.0); Albumin/Globulin Ratio 1.8 (0.8-1.8); Bilirubin, Indirect 3.9 mg/dL (0.1-0.7); Bilirubin, Total 9.9 mg/dL (0.1-1.0); Bun/Creatinine Ratio 12.1 (12.0-20.0); Creatinine, Blood 4.38 mg/dL (0.60-1.20); Globulin, Blood 1.5 g/dL (2.2-4.0); Phosphorus, Blood 4.9 mg/dL (2.5-4.9); Potassium, Blood 3.3 mmol/L (3.5-5.5); Total Protein, Blood 4.2 g/dL (6.4-8.2)
--- NOTE | 2021-01-11 08:05 | NUR ---
INITIAL ASSESSMENT PATIENT INTUBATED AND ON LIGHT SEDATION. PROPOFOL AT 10 MCG/ KG/ MINUTE. PATIENT WITHDRAWING HANDS/ ARMS FROM NOXIOUS STIMULI. NO MOVEMENT NOTED TO BLES AND NO GRIMACING TO FACE WITH NOXIOUS STIMULI. EYES JAUNDICED/ SCLERAL EDEMA NOTED. EYES REMAIN FIXED WITH MOVEMENT. COUGH REFLEX NOTED WITH SUCTIONING. PATIENT AFEBRILE. NO SIGNS OF PAIN NOTED AT THIS TIME. PATIENT ON AC 16, TV 350, PEEP 12, FIO2 AT 80%. LUNGS COARSE WITH EXPIRATORY WHEEZES NOTED IN UPPER LOBES. RLL COARSE. EXPIRATORY WHEEZES LLL. SCANT AMOUNT OF THIN, YELLOW SECRETIONS SUCTIONED FROM ETT. RR 20S TO 30S. PATIENT IN SR, HR 70S TO 80S. SBP 80S TO 90S. LEVOPHED AT 11 MCG/ MINUTE AND VASOPRESSIN AT 0.04 UNITS/ MINUTE. TIBIAL PULSES DOPPLER; ALL OTHERS FAINT. PITTING EDEMA NOTED TO BLES AND THIGHS. TRACE EDEMA TO BUES. SCDS IN PLACE. ABDOMEN DISTENDED, TIGHT, WITH HYPOACTIVE BOWEL SOUNDS. OG IN PLACE; CLAMPED AT THIS TIME POST AM MED ADMINISTRATION. OG HAS BEEN TO LIS AND SUCTIONING RED DRAINAGE. BAUGH DRAINING MESERET COLORED URINE. SCATTERED BRUISING NOTED. AC AND SACRUM REDDENED. BLES DISCOLORED. SANDOSTATIN AT 25 MLS/ HOUR, PROTONIX AT 10 MLS/ HOUR, BICARB AT 150 MLS/ HOUR. BED LOW, CALL LIGHT IN REACH. WILL CONTINUE TO MONITOR PATIENT FREQUENTLY THROUGHOUT SHIFT.
--- NOTE | 2021-01-11 09:30 | NUR ---
DR. BRUMFIELD UPDATED ON PATIENT STATUS. INFORMED THAT ALT AND AST IMPROVED THIS AM. INFORMED THAT PLATELETS HAVE DECREASED TO 58, POTASSIUM LOW AT 3.3, CALCIUM LOW AT 6.0, AND KIDNEY LABS INCREASING. INFORMED THAT AM HEMOGLOBIN 7.0. RECEIVED ORDERS FOR POTASSIUM AND CALCIUM REPLACEMENTS.
[2021-01-11 10:03] LABS: Hematocrit 20.3 % (37.0-53.0); Hemoglobin 7.1 g/dL (13.5-17.5)
--- NOTE | 2021-01-11 12:00 | NUR ---
PATIENT AFEBRILE. HR IN THE 80S. SBP 80S TO LOW 100S. LEVOPHED AT 10 MCG/ MINUTE. PEEP AT 10. BLOOD SUGAR OF 170. NO OTHER ACUTE CHANGES TO NOTE ON AT THIS TIME. WILL CONTINUE TO MONITOR.
--- NOTE | 2021-01-11 12:57 | NUR ---
DR. BRUMFIELD IN ROOM TO SPEAK WITH PATIENT'S SISTERS YVON AND DELORIS. FAMILY BROUGHT IN LIVING WILL/ [employer]VANCE DIRECTIVE FROM [place] THAT PATIENT HAD FILLED OUT AND SIGNED IN 2017. PATIENT INDICATED IN PAPERWORK THAT HE DID NOT WANT TO HAVE ANY LIFE-SUSTAINING TREATMENTS. HE DID INDICATE THAT HE WOULD LIKE HIS NEPHEW, DAVID HERMAN, TO MAKE DECISIONS ABOUT HIS HEALTH IF HE COULD NO LONGER MAKE THEM FOR HIMSELF. AFTER SEEING THIS, YVON AND DELORIS ARE IN AGREEANCE TO MAKE PATIENT COMFORT CARE. DAVID CALLED AT [phone]. DAVID STATED THAT HE WAS ALSO IN AGREEANCE WITH YVON AND DELORIS AND PATIENT TO BE MADE COMFORT CARE. [place] CALLED TO MAKE SURE THAT THIS VERSION OF ADVANCE DIRECTIVE/ LIVING WILL IS THE MOST RECENT AND THEY CONFIRMED THAT IT IS. DR. BRUMFIELD TO PUT ORDERS IN NOW AFTER BEING UPDATED AND SPEAKING WITH FAMILY.
--- NOTE | 2021-01-11 14:15 | NUR ---
PATIENT EXTUBATED AT 1340. DRIPS INFUSING TO KEEP BP ADEQUATE TURNED OFF WELL AT THIS SAME TIME. PATIENT GIVEN PRN PAIN MEDICATIONS FOR SIGNS OF PAIN, INCREASED WOB, SECRETIONS. PATIENT DEEP SUCTIONED TO TRY AND HELP GURGLING SOUND COMING FROM THROAT. SISTER, YVON, VERY UPSET BY THIS SOUND. PATIENT PASSED QUIETLY AT 1405 WITHOUT SIGNS OF PAIN, DISTRESS, OR DISCOMFORT. FAMILY REMAINS AT BEDSIDE.
--- NOTE | 2021-01-11 17:58 | NUR ---
LUIS JUST LEFT UNIT WITH PATIENT BODY.
== END 2021-01-11 15:04 | DRG 432 ==
LOC: ER 15:42 → ICUW 17:39 → ER 17:39 → ICUW 17:40
PROVIDERS: Internal Medicine Critical Care Medicine; Internal Medicine Gastroenterology; Physician Assistant; ADMIT Internal Medicine
PROC: 3E033XZ Introduction of Vasopressor into Peripheral Vein, Percutaneous Approach (ICD-10-PCS; 2021-01-08)
PROC: B548ZZA Ultrasonography of Superior Vena Cava, Guidance (ICD-10-PCS; 2021-01-09)
PROC: 0BH18EZ Insertion of Endotracheal Airway into Trachea, Via Natural or Artificial Opening Endoscopic (ICD-10-PCS; 2021-01-09)
PROC: 5A1945Z Respiratory Ventilation, 24-96 Consecutive Hours (ICD-10-PCS; 2021-01-09)
PROC: 5A12012 Performance of Cardiac Output, Single, Manual (ICD-10-PCS; 2021-01-09)
PROC: 06L38CZ Occlusion of Esophageal Vein with Extraluminal Device, Via Natural or Artificial Opening Endoscopic (ICD-10-PCS; principal; 2021-01-09 04:00)
PROC: 30233N1 Transfusion of Nonautologous Red Blood Cells into Peripheral Vein, Percutaneous Approach (ICD-10-PCS; 2021-01-09 04:00)
PROC: 02HV33Z Insertion of Infusion Device into Superior Vena Cava, Percutaneous Approach (ICD-10-PCS; 2021-01-09 04:00)
PROC: 0W9G3ZZ Drainage of Peritoneal Cavity, Percutaneous Approach (ICD-10-PCS; 2021-01-10)
DX: K70.31 Alcoholic cirrhosis of liver with ascites (principal); I85.11 Secondary esophageal varices with bleeding; J96.00 Acute respiratory failure, unspecified whether with hypoxia or hypercapnia; N17.0 Acute kidney failure with tubular necrosis; D62 Acute posthemorrhagic anemia; G93.1 Anoxic brain damage, not elsewhere classified; I46.8 Cardiac arrest due to other underlying condition; R57.8 Other shock; Z66 Do not resuscitate; Z51.5 Encounter for palliative care; K70.11 Alcoholic hepatitis with ascites; I10 Essential (primary) hypertension; E05.90 Thyrotoxicosis, unspecified without thyrotoxic crisis or storm; E03.9 Hypothyroidism, unspecified; E83.51 Hypocalcemia; K44.9 Diaphragmatic hernia without obstruction or gangrene; E66.9 Obesity, unspecified; Z68.34 Body mass index [BMI] 34.0-34.9, adult
CPT/HCPCS: 31500; 31720; 36415; 36430; 36556; 36600; 49083; 51703; 70450; 71045; 71046; 80053; 80076; 81001; 82042; 82248; 82330; 82803; 82947; 83605; 83735; 84100; 85014; 85018; 85025; 85384; 85610; 85730; 86850; 86900; 86901; 86923; 87070; 87205; 89051; 92950; 93005; 93010; 94002; 94003; 96361; 96365; 96374; 96375; 96376; 99285-25; A9270; C1751; C9113; G0378; J0153; J0171; J0330; J0610; J0696; J1430; J2060; J2250; J2354; J2405; J2543; J2704; J2765; J3010; J3480; J7030; J7050; J7060; J7070; P9016; P9035; P9046; P9059